=== PATIENT | male | born 1990 | race Caucasian/White ===

== ENCOUNTER 2021-06-19 02:49 | Observation (INO) | payer BC ==
[~2021-06-19] VITALS: Ht 175.3 cm; Wt 68.0 kg
[2021-06-19] MEDS ORDERED: KETOROLAC TROMETHAMINE 15 MG/ML VIAL ONE (03:39)
[2021-06-19 03:54] LABS: BASOPHILS # (AUTO) 0.1 K/uL (0.0-0.2); BASOPHILS % (AUTO) 0.6 % (0.0-2.0); HEMATOCRIT 38 % (39-51); HEMOGLOBIN 13.1 g/dL (13.5-17.5); LYMPHOCYTES # (AUTO) 1.6 K/uL (0.8-4.8); LYMPHOCYTES % (AUTO) 12.6 % (20.0-44.0); MEAN CORPUSCULAR HGB CONC 35 g/dl (31.0-36.0); MEAN CORPUSCULAR VOLUME 83 fL (80-96); MONOCYTES # (AUTO) 1.4 K/uL (0.1-1.30); MONOCYTES % (AUTO) 10.9 % (2.0-12.0); NEUTROPHILS # (AUTO) 9.9 K/uL (1.8-8.9); NEUTROPHILS % (AUTO) 75.9 % (43.0-81.0); PLATELET COUNT (AUTO) 589 K/uL (150-450); RED BLOOD CELL COUNT(AUTO) 4.56 MIL/uL (4.5-6.0); WHITE BLOOD COUNT (AUTO) 13.1 K/uL (4.3-11.0)
[2021-06-19] MEDS ORDERED: KETOROLAC TROMETHAMINE INJ 30 MG/ML VIAL IV ONE (04:00)
[2021-06-19] MEDS ORDERED: IV NS 0.9% 1,000 ML IV ONE (04:00)
[2021-06-19 04:01] LABS: CALCIUM, SERUM 8.8 mg/dL (8.5-10.1); CARBON DIOXIDE 27 mmol/L (21-32); CHLORIDE 102 mmol/L (98-107); GLUCOSE 107 mg/dL (74-106); SODIUM SERUM 138 mmol/L (136-145); UREA NITROGEN, BLOOD 12 mg/dL (7-18)
--- NOTE | 2021-06-19 04:10 | NUR ---
xray at bedside
[2021-06-19] MEDS ORDERED: CT SWABBABLE VALVE TRANS SET 1 EA INFUS.SET MC ONE (04:29)
[2021-06-19] MEDS ORDERED: IOHEXOL-350 100 ML VIAL IV ONE (04:29)
[2021-06-19] MEDS ORDERED: IV NS 0.9% 250 ML IV ONE (04:29)
--- NOTE | 2021-06-19 04:35 | NUR ---
PT TO CT.
--- NOTE | 2021-06-19 06:50 | NUR ---
COVID SWAB COLLECTED AND SENT TO LAB
[2021-06-19] MEDS ORDERED: ENOXAPARIN SODIUM 60 MG/0.6 ML DISP.SYRIN SQ ONE ×2 (07:00→08:33)
[2021-06-19] MEDS ORDERED: DEXAMETHASONE SOD PHOSPHATE 10 MG/ML VIAL IV ONE (07:00)
--- NOTE | 2021-06-19 07:41 | NUR ---
ASSESSED PT ON BED AWAKE AND ALERT, NOT IN RESPIRATORY DISTRESS, V/S STABLE, KEPT RESTED AND COMFORTABLE. WILL CONTINUE TO MONITOR.
[2021-06-19] MEDS ORDERED: DEXAMETHASONE SOD PHOSPHATE 10 MG/ML VIAL ONE (08:33)
[2021-06-19 08:34] LABS: C-REACTIVE PROTEIN 8.3 mg/dL (0.0-0.9)
--- NOTE | 2021-06-19 10:59 | NUR ---
GOT BED ASSIGNMENT 103
--- NOTE | 2021-06-19 11:06 | NUR ---
REPORT GIVEN TO LULU [facility] [place] [facility] FOR MARIANELA.
--- NOTE | 2021-06-19 11:33 | NUR ---
SPOKE TO DR HAWLEY REGARDING PATIENT'S PLAN OF CARE AND WAS ADVISED THAT PATIENT IS ALREADY CLEARED FOR DISCHARGE.
[2021-06-19 12:36] VITALS: BP 127/84
--- NOTE | 2021-06-21 12:03 | NUR ---
COVID RESULT RECEIVED FROM [facility] FROM LAB. PT COVID POSITIVE.
== END 2021-06-19 11:33 | disposition home or self-care (01) ==
LOC: ER 02:56 → TRANSITION 10:42 → TELE1 11:15
PROVIDERS: ADMIT Internal Medicine; ATTEND Internal Medicine
DX: I26.99 Other pulmonary embolism without acute cor pulmonale (principal); U07.1 COVID-19; R07.9 Chest pain, unspecified; Z87.01 Personal history of pneumonia (recurrent); R05 Cough; D72.829 Elevated white blood cell count, unspecified; R79.89 Other specified abnormal findings of blood chemistry; D68.51 Activated protein C resistance
CPT/HCPCS: 36415; 71045; 71275; 80048; 82550; 82728; 83605; 83615; 83880; 84145; 84484; 85025; 85378; 85730; 86140; 87040 ×2; 87081; 93005; G0378; J1100; J1650; J1885; J7030; J7050; Q9967; U0003